=== PATIENT | male | born 1975 | race Caucasian/White ===

== ENCOUNTER 2019-05-26 11:06 | Emergency (ER) | payer BC ==
--- NOTE | 2019-05-26 12:38 | UC ---
Bite Injury/Animal HPI - HPI Summary HPI Summary: 44 y/o male presents to the urgent care c/o pt states he was bitten by a dog onto his right elbow yesterday afternoon. The dog event crew technician stated the dog was up to date with vaccines, and is observable. Pt is here to get the bite checked out. pt has not talked to the health dept. - History of Current Complaint Chief Complaint: UCBiteInjury Stated Complaint: RT ELBOW DOG BITE Time Seen by Provider: 05/26/19 12:33 Hx Obtained From: Patient Severity Currently: Mild Severity Initially: Mild Pain Intensity: 0 Pain Scale Used: 0-10 Numeric Onset/Duration: Sudden Onset, Lasting Days - 1 day Type of Bite: Pet - neighbor's dog Has Animal Been Immunized?: Yes Character: Abrasion/Laceration - abrasion th ethe RT upper arm Aggravating Factor(s): Nothing Alleviating Factor(s): Rest Associated Signs And Symptoms: Positive: Negative. Negative: Fever, Drainage, Swelling, Lymphadenopathy, Numbness/Tingling, Limited ROM Animal Available for Observation: Yes Animal Control Notified: No - Risk Factors Infection/Sepsis Risk Factors: Negative - Allergies/Home Medications Allergies/Adverse Reactions: Allergies Allergy/AdvReac Type Severity Reaction Status Date / Time No Known Allergies Allergy Verified 05/26/19 11:30 PMH/Surg Hx/FS Hx/Imm Hx Previously Healthy: Yes - PT denies PMHX - Surgical History Surgical History: None - Family History Known Family History: Positive: Hypertension, Diabetes - Social History Occupation: Employed Full-time Lives: With Family Alcohol Use: Occasionally Substance Use Type: Marijuana Smoking Status (MU): Never Smoked Tobacco - Immunization History Hx Tetanus, Diphtheria Vaccination: No - unsure when was the last Tetanus vaccine Review of Systems All Other Systems Reviewed And Are Negative: Yes Constitutional: Positive: Negative Skin: Positive: Other - abrasion w/ a bruise in the Rt upper arm s/p dog bite, mild swelling Eyes: Positive: Negative ENT: Positive: Negative Respiratory: Positive: Negative Cardiovascular: Positive: Negative Gastrointestinal: Positive: Negative Genitourinary: Positive: Negative Motor: Positive: Negative Neurovascular: Positive: Negative Musculoskeletal: Positive: Negative Neurological: Positive: Negative Psychological: Positive: Negative Is Patient Immunocompromised?: No Physical Exam - Summary Physical Exam Summary: Vital Signs Reviewed: Yes General: well appearing, well nourished male in no acute apparent pain distress , sitting comfortably on examining table Eye Exam: Normal Eyes: Positive: Conjunctiva Clear - PERRLA< EOMI, fundi grossly normal ENT: Positive: Normal ENT inspection, Hearing grossly normal, Pharynx normal, TMs normal Neck: Positive: Supple, Nontender, No Lymphadenopathy Respiratory: Positive: Chest non-tender, Lungs clear, Normal breath sounds, No respiratory distress Cardiovascular: Positive: RRR, No Murmur, Pulses Normal, Brisk Capillary Refill Abdomen Description: Positive: Nontender, No Organomegaly, Soft. Negative: CVA Tenderness (R), CVA Tenderness (L) Bowel Sounds: Positive: Present Musculoskeletal: Positive: Strength Intact, ROM Intact, No Edema Neurological: Positive: Alert, Muscle Tone Normal Psychological Exam: Normal Skin: Positive: Medial aspect of the distal Rt upper arm w/ abrasion/scratch and surrounding bruise and mild swelling, no drainage observed, no breaks in the skin. mild tenderness on palpation. FROM of RT elbow. pulses WNL, capillary refill brisk, sensation WNL. Triage Information Reviewed: Yes Vital Signs: Initial Vital Signs Temp 99 F 05/26/19 11:26 Pulse 67 05/26/19 11:26 Resp 18 05/26/19 11:26 BP 122/83 05/26/19 11:26 Pulse Ox 100 05/26/19 11:26 Bite Injury Course/Dx - Course Course Of Treatment: Pt w/ Positive: Medial aspect of the distal Rt upper arm w/ abrasion/scratch and surrounding bruise and mild swelling, no drainage observed, no breaks in the skin. mild tenderness on palpation. FROM of RT elbow. pulses WNL, capillary refill brisk, sensation WNL on examination. Pt given Tdap vaccine by the nurse. Pt tolerated well vaccine. Pt' s wound cleaned irrigated well and cleaned w/ iodine swabs, and bacitracin oint applied over and covered w/ sterile dressing. Pt Rx Augmentin PO, and topical Bacitracin. Advised if abrasion doubles in size and if she develops a fever to go to the ER for further treatment. Pt strongly advised to notified the Health Department even though the dog is UTD w/ Rabies vaccine. D/c instructions explained. Pt understood and agreed w/ plan of care. - Differential Dx/Diagnosis Differential Diagnosis/HQI/PQRI: Cellulitis, Laceration, Rabies Exposure, Deep Space Infection, Tenosynovitis Provider Diagnosis: Dog bite, Abrasion of right upper arm Discharge - Sign-Out/Discharge Documenting (check all that apply): Patient Departure - D/c home All imaging exams completed and their final reports reviewed: No Studies - Discharge Plan Condition: Stable Disposition: HOME Prescriptions: Amoxicillin/Clavulanate TAB* [Augmentin TAB 875*] 875 mg PO BID #20 tab Bacitracin OINTMENT* 1 applic TOPICAL BID #1 tube Patient Education Materials: Animal Bite (ED) Referrals: [facility] [place] [facility] [Outside] Additional Instructions: 1-Please take full course of Antibiotic. take yogurts w/ probiotics or Culturelle to protect your GI system 2- If redness and swelling doubles in size around abrasion after 48 hrs of taking antibiotic and fever develops please go to the ER immediately. 3-Avoid too much flexing of your elbow. keep it elevated and keep wound clean and dry. Apply bacitrain oint as directed to prevent infection. 4-Please F/u with your PCP in 3 days if not improvement of symptoms for further evaluation and treatment. 5- Even though the dog is UTD w/ rabies vaccine, please notify the Health department of the incident - Billing Disposition and Condition Condition: STABLE Disposition: Home
[2019-05-26] MEDS ORDERED: Tetan/Diph/Pertus SYR(Tdap)* 0.5 ML SYR(BOOSTRIX) use SYR IM ONE (12:48)
== END 2019-05-26 13:32 | disposition home or self-care (01) ==
LOC: UCEAST 11:06
DX: S40.811A Abrasion of right upper arm, initial encounter (principal); W54.0XXA Bitten by dog, initial encounter; Y92.9 Unspecified place or not applicable; Z23 Encounter for immunization
CPT/HCPCS: 90471; 90715; 99202; G0463